=== PATIENT | male | born 1990 ===

== ENCOUNTER 2025-03-16 06:00 | Day surgery (SDC) | payer OTHER ==
[2025-03-08 09:20] VITALS: BP 106/69
[2025-03-08 10:24] LABS: BASO % 1.9 % (0.1-1.2); EOS # 0.18 (0.04-0.54); EOS % 4.3 % (0.7-7.0); LYMPH # 1.98 (1.18-3.74); LYMPH % 47.1 % (19.3-53.1); MEAN PLATELET VOLUME 11.50 fl (9.4-12.4); MONO # 0.35 (0.24-0.82); MONO % 8.3 % (4.7-12.5); NEUT # 1.60 (1.56-6.13); NEUT % 38.2 % (34.0-71.1); RED CELL DISTRIBUTION WIDTH 13.4 % (11.6-14.4)
[2025-03-08 10:31] LABS: URINE APPEARANCE Clear; URINE BILIRRUBIN Negative (NEGATIVE); URINE BLOOD Negative; URINE COLOR Yellow; URINE GLUCOSE Negative (NEGATIVE); URINE KETONE Negative (NEGATIVE); URINE LEUKOCYTE Negative; URINE NITRATE Negative; URINE PROTEIN Negative (NEGATIVE); URINE UROBILINOGEN 0.2 E.U./dl
[2025-03-08 10:35] LABS: URINE BACTERIA 5.9 uL (0.0-1933); URINE EPITHELIAL CELLS 2.4 uL (0.0-38.8); URINE WBC 3.0 uL (0.0-23.2)
[2025-03-08 10:36] LABS: URINE CAST 0.29 uL (0.0-1.40); URINE RBC 0.2 uL (0.0-20.8)
[2025-03-08 10:58] LABS: INR 1.13
[2025-03-08 11:17] LABS: ALT/SGPT 47.0 U/L (12-78); AST/SGOT 20.0 U/L (15-37); BILIRUBIN TOTAL 0.49 mg/dL (0.3-1.2); BUN CREA RATIO 14.0 (7.0-25.0); CREATININE SERUM 0.93 mg/dL (0.70-1.30); GFR 91.93; GLOBULINA 3.7 G/DL (2.4-3.5); GLUCOSE FASTING 87.0 mg/dL (65-100); OSMOLALITY SERUM 284.0 MOSM/KG (275-295)
[~2025-03-16] VITALS: Ht 167.6 cm; Wt 93.9 kg
[2025-03-16] MEDS ORDERED: CIPROFLOXACIN IN 5 % DEXTROSE 400 MG/200 ML PIGGYBAG IV ONE (07:05)
== END 2025-03-16 12:00 | disposition home or self-care (01) ==
LOC: CIR.AMB 06:00
PROVIDERS: ATTEND Surgery
DX: K81.1 Chronic cholecystitis (principal)